=== PATIENT | male | born 1990 | race African-American/Black ===

== ENCOUNTER 2017-04-18 13:30 | Emergency (ER) | payer SELFPAY ==
[~2017-04-18] VITALS: Ht 190.5 cm; Wt 86.5 kg
[2017-04-18 14:31] LABS: BASOPHILS % 0.7 % (0.0-2.0); EOSINOPHILS % 1.7 % (0.0-5.0); HEMATOCRIT. 45.6 % (42.0-52.0); HEMOGLOBIN. 14.8 g/dL (14.0-18.0); MEAN CORPUSCULAR HEMOGLOBIN 28.2 pg (28.0-32.0); MEAN CORPUSCULAR VOLUME 86.7 fL (80.0-94.0); MONOCYTES % 7.3 % (2.0-8.0); NEUTROPHILS % 54.3 % (40.0-76.0); PLATELET 250 x1000/uL (130-400); RED BLOOD CELL COUNT 5.26 mill/uL (4.7-6.1); RED CELL DISTRIBUTION WIDTH 14.4 % (11.6-14.6)
[2017-04-18 14:36] LABS: CHLORIDE 107 mEq/L (98-107)
[2017-04-18 14:42] LABS: CARBON DIOXIDE 28 mEq/L (21-32)
[2017-04-18 15:01] LABS: CLARITY URINE CLEAR (CLEAR); COLOR URINE YELLOW (YELLOW); GLUCOSE URINE NEGATIVE (NEGATIVE); KETONES URINE NEGATIVE (NEGATIVE); LEUKOCYTE ESTERASE URINE NEGATIVE (NEGATIVE); NITRITE URINE NEGATIVE (NEGATIVE); OCCULT BLOOD URINE NEGATIVE (NEGATIVE); PH URINE 7.5 (4.5-8.0); PROTEIN URINE NEGATIVE (NEGATIVE); SPECIFIC GRAVITY URINE 1.023 (1.005-1.030)
[2017-04-18 16:00] VITALS: BP 110/71
== END 2017-04-18 16:11 | disposition home or self-care (01) ==
LOC: ER 13:30
DX: R31.0 Gross hematuria (principal); J45.909 Unspecified asthma, uncomplicated
CPT/HCPCS: 36415; 80048; 81003; 85025; 99284